=== PATIENT | female | born 1965 | race Caucasian/White ===

== ENCOUNTER 2019-01-17 12:36 | Emergency (ER) | payer OTHER ==
--- NOTE | 2019-01-17 13:08 | ED Physician Documentation ---
PD HPI LOWER EXT INJURY - Stated complaint Stated Complaint: RT KNEE INJ - Chief complaint Chief Complaint: Ext Problem - History obtained from History obtained from: Patient - History of Present Illness PD HPI LOW EXT INJURY LOCATION: Right, Knee Type of injury: Twist (She was changing the bed sheets on a bunk bed at work. She was up on the bed and had a twisting of the knee and felt the onset of pain on the medial aspect. Its hurting for her to walk.) Where injury occurred: Work Timing - details: Abrupt onset, Still present Worsened by: Moving, Palpating (Along the medial aspect) Associated symptoms: No: Weakness, Numbness, Swelling Recently seen: Not recently seen Review of Systems Skin: denies: Abrasion (s), Laceration (s) Musculoskeletal: denies: Joint swelling Neurologic: denies: Focal weakness, Numbness PD PAST MEDICAL HISTORY - Past Medical History Cardiovascular: None Musculoskeletal: Other (She had had right meniscal tear in the past with a arthroscopic surgery with removal of the meniscus. She had been doing well since that time. This was about 5 or 6 years ago. No recent problems with the knee.) - Present Medications Home Medications: Ambulatory Orders Medication Instructions Recorded Confirmed Hydrocodone/Acetaminophen [[place] 1 each PO Q6H PRN #15 tablet 01/17/19 5-325 Tablet] RX: Naproxen 500 mg PO BID #20 tablet 01/17/19 - Allergies Allergies/Adverse Reactions: Allergies Allergy/AdvReac Type Severity Reaction Status Date / Time No Known Drug Allergies Allergy Verified 01/17/19 12:43 PD ED PE NORMAL - Vitals Vital signs reviewed: Yes - General General: Alert and oriented X 3, No acute distress, Well developed/nourished - Derm Derm: Normal color, Warm and dry, No rash - Extremities Extremities: Other (The right knee shows tenderness along the medial aspect. There is pain elicited with valgus stress but no laxity noted. There is no effusion of the knee. Cruciate ligament testing is without any laxity or pain. Impaction stress testing of the knee does cause some pain but would be less likely to be meniscal since she had that previous surgery. There is no clicking or popping.) Results - Vitals Vitals: Vital Signs - 24 hr 01/17/19 01/17/19 12:41 14:31 Temperature 36.3 C L Heart Rate 75 61 Respiratory 19 14 Rate Blood Pressure 148/95 H 158/107 H O2 Saturation 99 98 Oxygen O2 Source Room air - Rads (name of study) right knee Radiology: Prelim report reviewed, EMP read contemporaneously (No fractures or acute bony abnormalities.), See rad report PD MEDICAL DECISION MAKING - ED course Complexity details: considered differential (Seems likely to be a MCL strain without obvious tear. We will give her a knee immobilizer and have her follow- up with Ortho in about a week. Given work restrictions for limited standing and no bending with the knee for that timeframe. She is to use some anti-inflammatories or Tylenol as needed. She declined other pain medicines.), d/w patient Departure - Departure Disposition: Home, Self Care Clinical Impression: MCL sprain of right knee Condition: Stable Record reviewed to determine appropriate education?: Yes Instructions: ED Sprain Knee Follow-Up: Miguel Angel Sahni MD [Provider Admit Priv/Credential] - Prescriptions: Hydrocodone/Acetaminophen [[place] 5-325 Tablet] 1 each PO Q6H PRN #15 tablet PRN Reason: Pain RX: Naproxen 500 mg PO BID #20 tablet Comments: I think this sounds like a strain of the MCL ligament of the knee. Using knee brace when up and around for the next 5 or 6 days. Follow-up with orthopedics later this coming week, call Friday for an appointment. Use some anti- inflammatories such as naproxen or ibuprofen 2-3 times a day. Add Tylenol if needed for pain. Add hydrocodone if needed for worse pain. Limited activity during the next 5 or 6 days until follow-up. Forms: Activity restrictions Discharge Date/Time: 01/17/19 14:31
[2019-01-17] MEDS ORDERED: IBUPROFEN 600 MG TABLET PO STA (13:31)
[2019-01-17] MEDS ORDERED: HYDROcod/ACETAM 5/325 MG TABLET PO STA (13:32)
--- NOTE | 2019-01-17 14:10 | XRAY Report ---
Reason: knee pain with twisting today Procedure Date: 01/17/2019 Accession Number: [id number] / [id number] Procedure: XR - Knee 4 View RT CPT Code: FULL RESULT: EXAM: RIGHT KNEE RADIOGRAPHY EXAM DATE: 01/17/2019 01:48 PM. CLINICAL HISTORY: Knee pain with twisting today. COMPARISON: None. TECHNIQUE: 4 views. FINDINGS: Bones: Normal. No fractures or bone lesions. Joints: Normal. No effusion. No subluxations. Soft Tissues: Normal. No soft tissue swelling. IMPRESSION: Normal knee radiography. [facility]
[2019-01-17 14:34] VITALS: BP 158/107
== END 2019-01-17 14:31 | disposition home or self-care (01) ==
LOC: ED 12:36
DX: S83.411A Sprain of medial collateral ligament of right knee, initial encounter (principal); X50.1XXA Overexertion from prolonged static or awkward postures, initial encounter; Y93.E9 Activity, other interior property and clothing maintenance; Y99.0 Civilian activity done for income or pay
CPT/HCPCS: 1040M; 73564; 99283; A9270